=== PATIENT | male | born 1985 | race Caucasian/White ===

== ENCOUNTER 2025-03-01 07:50 | Day surgery (SDC) | payer BC, OTHER ==
[~2025-03-01 07:50] MED LIST: Sodium Chloride 0.9% 10 ML Syringe FLUSH PRN
[2025-03-01] MEDS ORDERED: Propofol 200 MG/20 ML SDV IV ONE (07:51)
[2025-03-01] MEDS ORDERED: fentaNYL 100 MCG/2 ML SDV IV ONE (07:51)
[2025-03-01] MEDS ORDERED: Midazolam 1 MG/ML 2 ML SDV IV ONE (07:51)
[2025-03-01] MEDS: Lactated Ringers 1,000 ML IV SCH (08:13)
== END 2025-03-01 10:03 | disposition home or self-care (01) ==
LOC: FB.SDS 07:50
PROVIDERS: ATTEND Surgery
DX: D12.0 Benign neoplasm of cecum (principal); K62.5 Hemorrhage of anus and rectum; K63.3 Ulcer of intestine; F17.210 Nicotine dependence, cigarettes, uncomplicated; Z79.899 Other long term (current) drug therapy
CPT/HCPCS: 00811; 45380; 88305; A9270; J2250; J2704; J3010; J7120